=== PATIENT | female | born 1975 | race Caucasian/White ===

== ENCOUNTER → 2022-12-08 11:56 | Outpatient (CLI) | payer OTHER, MEDICAID, SELFPAY ==
--- NOTE | 2022-12-08 | DI.MRI.S_ITS ---
BREAST MRI OF BOTH BREASTS: 12/08/2022 CLINICAL: Abnormal breast imaging. Comparison is made to exams dated: 11/30/2022 mammogram, 11/18/2022 ultrasound, 11/30/2022 ultrasound biopsy, 11/18/2022 mammogram, and 10/20/2022 mammogram - [facility]. INDICATIONS: ABNORMAL BREAST IMAGING TECHNIQUE: The patient was placed prone in a dedicated breast imaging coil. Precontrast axial STIR and 3D FLASH without fat saturation sequences were obtained. Both before and after bolus injection of contrast, sequential 1-minute axial 3D FLASH with fat saturation sequences for 3 time points, with subtraction images and maximum intensity projections (MIP's) generated. Delayed sagittal FLASH images with fat saturation were also obtained. Computer-aided detection, including computer algorithm analysis of MRI image data for lesion detection and characterization, pharmacokinetic analysis, with further physician review for interpretation, was performed. FINDINGS: Image quality: Excellent. There is marked background parenchymal enhancement. Heterogeneous fibroglandular tissue is seen in both breasts. Right breast: No suspicious mass or abnormal non-mass enhancement. No internal mammary or axillary lymphadenopathy. Left breast: Irregular hyperenhancing mass is seen in the left breast at the 4 o'clock position posterior depth measuring approximately 2.1 cm transverse by 1.7 cm anterior-posterior by 1.9 cm craniocaudal (48/5 and 88/15) corresponds with the known biopsy-proven malignancy. Kinetic curve assessment demonstrates rapid early enhancement and delayed washout. A biopsy clip is present. Deep to the malignancy, there is a 2.0 x 1.9 by 1.1 cm irregular fluid collection with intrinsic [id number] signal and no postcontrast enhancement, consistent with a small biopsy related hematoma. No suspicious axillary or internal mammary lymphadenopathy. Miscellaneous: Included portions of the anterior chest wall and upper abdomen demonstrate no acute abnormality. IMPRESSION: KNOWN BIOPSY PROVEN MALIGNANCY 1. Known biopsy-proven malignancy is seen in the left breast at the 4 o'clock position. The mass measures 2.1 cm maximum dimension, which is larger when compared to the ultrasound from 11/18/2022. 2. Small benign post biopsy hematoma is seen adjacent to the left breast mass. 3. No axillary or internal mammary lymphadenopathy. BIRADS 6: Known biopsy-proven malignancy. This exam was interpreted at Station ID: [id number]. Electronically Signed By: Chato Wolff M.D. ar/:12/08/2022 16:56:43 ACR BI-RADS Category 6: Known biopsy proven malignancy [id number]
== END ==
PROVIDERS: Referring Provider Nurse Practitioner; Visit Provider Nurse Practitioner
DX: R92.8 Other abnormal and inconclusive findings on diagnostic imaging of breast (principal); C50.512 Malignant neoplasm of lower-outer quadrant of left female breast; L76.32 Postprocedural hematoma of skin and subcutaneous tissue following other procedure
CPT/HCPCS: 77049; A9579